=== PATIENT | female | born 1990 | race African-American/Black ===

== ENCOUNTER 2021-01-19 20:49 | Day surgery (SDC) | payer OTHER ==
[2021-01-19 21:10] VITALS: BMI 42.4
[2021-01-19] MEDS ORDERED: hydrALAZINE 20 MG/ML VIAL SLOW IVP PRN (22:07)
== END 2021-01-19 22:53 | disposition home or self-care (01) ==
LOC: CSHLD/OP 20:49
PROVIDERS: ATTEND Obstetrics & Gynecology
DX: O47.1 False labor at or after 37 completed weeks of gestation (principal); Z3A.39 39 weeks gestation of pregnancy; Z79.82 Long term (current) use of aspirin; Z91.040 Latex allergy status
CPT/HCPCS: 99283

== ENCOUNTER 2021-01-22 13:58 | Outpatient (CLI) | payer OTHER ==
[2021-01-23 08:01] LABS: SARS-CoV-2 PCR by NAA Not Detected (NotDetected)
== END 2021-01-22 13:59 | disposition home or self-care (01) ==
LOC: CSHLAB 13:58
PROVIDERS: ATTEND Family Medicine
DX: Z20.822 Contact with and (suspected) exposure to COVID-19 (principal)
CPT/HCPCS: U0003; U0005

== ENCOUNTER 2021-01-22 14:08 | Inpatient (IN) | payer OTHER ==
[2021-01-24] MEDS ORDERED: Lidocaine 2% MPF 10 ML AMP (For Epidural Use) ONE (14:45)
[2021-01-24 19:56] VITALS: BMI 42.0
[2021-01-24] MEDS ORDERED: Ibuprofen 800 MG TAB PO PRN (20:47)
[2021-01-24] MEDS ORDERED: Ondansetron PF 4 MG/2 ML Vial IVP PRN (20:47)
[2021-01-24] MEDS ORDERED: Carboprost 250 MCG/ML AMP IM PRN (20:47)
[2021-01-24] MEDS ORDERED: Misoprostol 200 MCG TAB PR PRN (20:47)
[2021-01-24] MEDS ORDERED: Butorphanol Tartrate 1 MG/ML VIAL SLOW IVP PRN (20:47)
[2021-01-24] MEDS ORDERED: Diphenoxylate HCl/Atropine Tablet PO PRN (20:47)
[2021-01-24] MEDS ORDERED: Promethazine HCl 25 MG/ML VIAL IM PRN (20:47)
[2021-01-24] MEDS ORDERED: HYDROcodone/Acetaminophen 5/325 mg Tablet PO PRN (20:47)
[2021-01-24] MEDS ORDERED: Methylergonovine 0.2 MG/ML VIAL IM PRN (20:47)
[2021-01-24] MEDS ORDERED: Acetaminophen 500 MG TAB PO PRN (20:47)
[2021-01-24] MEDS ORDERED: hydrALAZINE 20 MG/ML VIAL SLOW IVP PRN (20:47)
[2021-01-24] MEDS ORDERED: Lidocaine 1% (PF) 30 ML VIAL SC PRN (20:47)
[2021-01-24] MEDS ORDERED: Misoprostol 100 MCG TAB ONE (20:58)
[2021-01-24] MEDS ORDERED: Lactated Ringer's 1,000 ML IV SCH (21:00)
[2021-01-24] MEDS ORDERED: NS w/ Oxytocin 30 units 500 ML IV SCH ×2 (21:00)
[2021-01-24] MEDS ORDERED: NS w/ Oxytocin 30 units 500 ML IVPB SCH (21:00)
[2021-01-24] MEDS: Misoprostol 100 MCG TAB VAG SCH (21:06)
[2021-01-24 21:50] LABS: Hemoglobin 11.4 g/dL (12.0-15.5); Mean Corpuscular HGB CONC 33.2 g/dL (32.0-36.0); Mean Corpuscular Hemoglobin 31.3 pg (27.0-33.0); Mean Corpuscular Volume 94.2 fl (81.6-98.3); Mean Platelet Volume 12.6 fl (7.4-10.4); Platelet Count 160 10x3/uL (150-450); RBC Distribution Width 14.1 % (11.5-14.5); Red Blood Cell (RBC) Count 3.64 10x6/uL (3.90-5.03); White Blood Cell (WBC) Count 6.3 10x3/uL (3.5-10.5)
[2021-01-24 21:59] LABS: Syphilis Antibody Nonreactive (Nonreactive); Syphilis Antibody Index 0.16 S/CO (<1.00 Non-Reactive)
[2021-01-24 22:00] LABS: Hep B Surf Ag Non-Reactive S/CO (NonReactive)
[2021-01-24 22:09] LABS: HBSAg Index 0.13 S/CO (0-0.99)
[2021-01-25] MEDS: Misoprostol 100 MCG TAB VAG SCH ×2 (00:12→03:54)
[2021-01-25] MEDS ORDERED: Fentanyl 2 mcg/Bup 0.1% Cadd 100 ML ONE (08:55)
[2021-01-25] MEDS ORDERED: ePHEDrine Sulfate 50 MG/10 ML VIAL ONE ×2 (12:03→14:57)
[2021-01-25] MEDS ORDERED: Oxytocin 10 UNITS/ML VIAL ONE ×2 (14:53→17:00)
[2021-01-25] MEDS ORDERED: Ampicillin 2 GM VIAL ONE (14:54)
[2021-01-25] MEDS ORDERED: Morphine PF 10 MG/10 ML VIAL ONE (14:54)
[2021-01-25] MEDS ORDERED: CEFAZOLIN 1 GM VIAL ONE (14:54)
[2021-01-25] MEDS ORDERED: Azithromycin 500 MG VIAL ONE (15:04)
[2021-01-25] MEDS ORDERED: Lidocaine 1% (PF) 30 ML VIAL ONE (15:44)
[2021-01-25] MEDS ORDERED: PROPOFOL 20 ML ONE (15:45)
[2021-01-25] MEDS ORDERED: Dexamethasone 4 mg/ml Vial ONE (16:19)
[2021-01-25] MEDS ORDERED: Ketorolac Tromethamine 30 MG/ML VIAL ONE (16:20)
[2021-01-25] MEDS ORDERED: Fentanyl 100 MCG/2 ML VIAL ONE ×2 (16:25→16:49)
[2021-01-25] MEDS ORDERED: Tranexamic Acid 1,000 MG/10 ML VIAL ONE (16:27)
[2021-01-25] MEDS ORDERED: Carboprost 250 MCG/ML AMP ONE (16:29)
[2021-01-25] MEDS ORDERED: diphenhydrAMINE 25 MG CAP PO PRN ×2 (16:29→20:56)
[2021-01-25] MEDS ORDERED: diphenhydrAMINE 50 MG/ML VIAL IM PRN (16:29)
[2021-01-25] MEDS ORDERED: Ondansetron PF 4 MG/2 ML Vial IVP PRN ×2 (16:29→20:56)
[2021-01-25] MEDS ORDERED: Zolpidem Tartrate 5 MG TAB PO PRN (16:29)
[2021-01-25] MEDS ORDERED: Naloxone HCl 0.4 mg/ml Vial IV PRN (16:29)
[2021-01-25] MEDS ORDERED: Promethazine HCl 25 MG/ML VIAL IM PRN ×2 (16:29→20:56)
[2021-01-25] MEDS ORDERED: diphenhydrAMINE 50 MG/ML VIAL IVP PRN (16:29)
[2021-01-25] MEDS ORDERED: Communication Order-Pharmacy FS PRN (16:30)
[2021-01-25] MEDS ORDERED: Meperidine HCl/PF 25 MG/ML VIAL ONE (16:42)
[2021-01-25] MEDS: hydrALAZINE 20 MG/ML VIAL SLOW IVP PRN ×2 (17:21→18:14)
[2021-01-25] MEDS ORDERED: HYDROmorphone 40 MG/20 ML 10 MG in Sodium Chloride 0.9% 45 ML IV PRN (17:30)
[2021-01-25] MEDS ORDERED: Azithromycin 500 MG in Sodium Chloride 0.9% 250 ML 250 ML IVPB ONE (17:45)
[2021-01-25] MEDS ORDERED: HYDROmorphone 10 mg/100 ml CADD IVPB PRN (18:00)
[2021-01-25] MEDS ORDERED: hydrALAZINE 20 MG/ML VIAL ONE (18:51)
[2021-01-25] MEDS ORDERED: Magnesium Sulfate 20 gm/500 ml 20 GM/500 ML BAG ONE (18:53)
[2021-01-25] MEDS ORDERED: Diphenoxylate HCl/Atropine Tablet PO PRN ×2 (19:43→20:00)
[2021-01-25] MEDS ORDERED: Labetalol 100 MG TAB PO SCH (20:15)
[2021-01-25] MEDS ORDERED: hydrALAZINE 20 MG/ML VIAL SLOW IVP PRN (20:56)
[2021-01-25] MEDS ORDERED: Bisacodyl 10 MG SUPP PR PRN (20:56)
[2021-01-25] MEDS ORDERED: Boostrix 0.5 ML (Tdap) VIAL IM ONE (20:56)
[2021-01-25] MEDS ORDERED: Simethicone Chewable 80 MG TAB PO PRN (20:56)
[2021-01-25] MEDS ORDERED: Lanolin Ointment 7 GM TUBE TOP PRN (20:56)
[2021-01-25] MEDS ORDERED: HYDROcodone/Acetaminophen 5/325 mg Tablet PO PRN (20:56)
[2021-01-25] MEDS ORDERED: NS w/ Oxytocin 30 units 500 ML IV SCH (20:56)
[2021-01-26] MEDS: Ketorolac Tromethamine 30 MG/ML VIAL IVP SCH ×3 (00:05→13:08)
[2021-01-26] MEDS ORDERED: Magnesium Sulfate 20 gm/500 ml 20 GM/500 ML BAG ONE (03:27)
[2021-01-26] MEDS: Docusate Calcium (SURFAK) 240 MG CAP PO SCH ×3 (08:04→20:53)
[2021-01-26] MEDS: Ferrous Sulfate 325 MG TAB PO SCH ×3 (08:05→20:54)
[2021-01-26 09:07] LABS: Hemoglobin 8.9 g/dL (12.0-15.5); Mean Corpuscular HGB CONC 33.1 g/dL (32.0-36.0); Mean Corpuscular Hemoglobin 31.1 pg (27.0-33.0); Mean Corpuscular Volume 94.1 fl (81.6-98.3); Mean Platelet Volume 12.1 fl (7.4-10.4); Platelet Count 152 10x3/uL (150-450); RBC Distribution Width 14.5 % (11.5-14.5); Red Blood Cell (RBC) Count 2.86 10x6/uL (3.90-5.03)
[2021-01-26] MEDS: Misoprostol 100 MCG TAB VAG SCH (10:26)
[2021-01-26] MEDS: Prenatal Vitamin 1 TAB PO SCH (11:01)
[2021-01-26] MEDS: HYDROcodone/Acetaminophen 5/325 mg Tablet PO PRN ×2 (11:02→20:53)
[2021-01-26] MEDS: Ibuprofen 800 MG TAB PO SCH (20:54)
[2021-01-27] MEDS: Ibuprofen 800 MG TAB PO SCH ×3 (06:02→22:34)
[2021-01-27] MEDS: Prenatal Vitamin 1 TAB PO SCH (09:19)
[2021-01-27] MEDS: Docusate Calcium (SURFAK) 240 MG CAP PO SCH ×2 (09:19→22:34)
[2021-01-27] MEDS: Ferrous Sulfate 325 MG TAB PO SCH ×2 (09:19→22:34)
[2021-01-28] MEDS: Ibuprofen 800 MG TAB PO SCH ×2 (05:45→14:16)
[2021-01-28] MEDS: Docusate Calcium (SURFAK) 240 MG CAP PO SCH (09:05)
[2021-01-28] MEDS: Ferrous Sulfate 325 MG TAB PO SCH (09:05)
[2021-01-28] MEDS: Prenatal Vitamin 1 TAB PO SCH (09:06)
[2021-01-28 16:16] VITALS: BP 141/83; TEMP 97.9
== END 2021-01-28 18:00 | disposition home or self-care (01) | DRG 788 ==
LOC: EDSTATUS 14:21 → CSHLD 01-24 19:19 → CSHPP 01-26 10:00
PROVIDERS: ADMIT Family Medicine; ATTEND Family Medicine
PROC: 3E033VJ Introduction of Other Hormone into Peripheral Vein, Percutaneous Approach (ICD-10-PCS; principal; 2021-01-25)
PROC: 10D00Z1 Extraction of Products of Conception, Low, Open Approach (ICD-10-PCS; 2021-01-25)
DX: O62.2 Other uterine inertia (principal); O99.214 Obesity complicating childbirth; E66.9 Obesity, unspecified; O76 Abnormality in fetal heart rate and rhythm complicating labor and delivery; Z3A.40 40 weeks gestation of pregnancy; Z37.0 Single live birth
CPT/HCPCS: 36415; 51702; 85027; 86780; 86850; 86900; 86901; 87340; J0360; J0456; J0595; J1100; J1170; J1885; J2001; J2175; J2274; J2590; J2704; J3010; J3475; J3490

== ENCOUNTER 2021-10-21 19:00 | Emergency (ER) | payer OTHER ==
[2021-10-21] MEDS ORDERED: Dexamethasone 10 MG/ML VIAL ONE (19:57)
== END 2021-10-21 20:25 | disposition home or self-care (01) ==
LOC: CSHERS 19:00
DX: J02.9 Acute pharyngitis, unspecified (principal)
CPT/HCPCS: 99283; J1100

== ENCOUNTER 2022-10-09 08:14 | Emergency (ER) | payer OTHER ==
[2022-10-09 09:04] LABS: #Eosinphils 0.1 10x3/uL (0.0-0.5); #Monocytes 0.3 10x3/uL (0.0-1.1); #Neutrophils 1.9 10x3/uL (1.5-8.4); %Basophils 0.5 % (0.0-2.0); %Eosinophils 2.2 % (0.0-6.0); %Lymphocytes 42.8 % (18.0-47.0); %Monocytes 7.9 % (0.0-10.0); %Neutrophils 46.4 % (40.0-75.0); Hemoglobin 13.3 g/dL (12.0-15.5); Mean Corpuscular HGB CONC 32.7 g/dL (32.0-36.0); Mean Corpuscular Hemoglobin 30.4 pg (27.0-33.0); Mean Corpuscular Volume 92.9 fl (81.6-98.3); Mean Platelet Volume 10.4 fl (7.4-10.4); Platelet Count 240 10x3/uL (150-450); RBC Distribution Width 13.2 % (11.5-14.5); Red Blood Cell (RBC) Count 4.38 10x6/uL (3.90-5.03); White Blood Cell (WBC) Count 4.2 10x3/uL (3.5-10.5)
[2022-10-09 09:23] LABS: ALT (SGPT) 20 U/L (8-55); AST (SGOT) 19 U/L (5-34); Albumin 4.2 g/dL (3.5-5.0); Alkaline Phosphatase 53 U/L (40-110); Anion Gap 14 mmol/L (10-20); BUN (Urea Nitrogen) 14 mg/dL (7.0-18.7); Bilirubin, Total 0.3 mg/dL (0.2-1.2); Calc. Creatinine Clearance 0 mL/min (70-130); Calcium 8.9 mg/dL (7.8-10.44); Carbon Dioxide 23 mmol/L (22-29); Chloride 106 mmol/L (98-107); Estimated GFR 91; Globulin 3.8 g/dL (2.4-3.5); Glucose 128 mg/dL (70-105); Lipase 30 U/L (8-78); Potassium 3.9 mmol/L (3.5-5.1); Sodium 139 mmol/L (136-145)
[2022-10-09] MEDS ORDERED: Mag-Al Plus 1200 MG/1200 MG/120 MG/30 ML UDCUP ONE (11:24)
[2022-10-09] MEDS ORDERED: Lidocaine 1% (PF) 30 ML VIAL ONE ×2 (11:25→11:26)
[2022-10-09] MEDS ORDERED: Lidocaine Viscous Sol 2% 15 ml UD Cup ONE ×2 (11:27)
== END 2022-10-09 11:41 | disposition home or self-care (01) ==
LOC: CSHERS 08:14
DX: R10.13 Epigastric pain (principal); R11.2 Nausea with vomiting, unspecified; R20.2 Paresthesia of skin; G43.909 Migraine, unspecified, not intractable, without status migrainosus
CPT/HCPCS: 36415; 71045; 80053; 83690; 84484; 85025; 93005; J2001

== ENCOUNTER 2023-02-11 19:51 | Emergency (ER) | payer OTHER, SELFPAY ==
[2023-02-11 21:40] LABS: SARS-CoV-2 NAA Rapid Test DETECTED (NotDetected)
== END 2023-02-11 20:59 | disposition home or self-care (01) ==
LOC: CSHERS 19:51
DX: U07.1 COVID-19 (principal); J01.90 Acute sinusitis, unspecified; B96.89 Other specified bacterial agents as the cause of diseases classified elsewhere
CPT/HCPCS: 99283

== ENCOUNTER 2023-05-08 10:33 | Emergency (ER) | payer OTHER ==
[2023-05-08] MEDS ORDERED: Ketorolac Tromethamine 30 MG/ML VIAL ONE (11:28)
[2023-05-08] MEDS ORDERED: Lidocaine 4% Patch TD SCH (12:00)
[2023-05-08] MEDS ORDERED: Transdermal Patch Removal TOP SCH (23:30)
== END 2023-05-08 11:50 | disposition home or self-care (01) ==
LOC: CSHERS 10:33
DX: M54.50 Low back pain, unspecified (principal)
CPT/HCPCS: 96372; 99283; J1885

== ENCOUNTER 2024-03-16 18:21 | Day surgery (SDC) | payer BC, OTHER ==
[2024-03-16 19:02] VITALS: BMI 41.1
[2024-03-16] MEDS ORDERED: hydrALAZINE 20 MG/ML VIAL SLOW IVP PRN (19:48)
== END 2024-03-16 20:00 | disposition home or self-care (01) ==
LOC: CSHLD/OP 18:21
PROVIDERS: ATTEND Family Medicine
DX: O99.891 Other specified diseases and conditions complicating pregnancy (principal); O12.03 Gestational edema, third trimester; O99.353 Diseases of the nervous system complicating pregnancy, third trimester; G43.909 Migraine, unspecified, not intractable, without status migrainosus; O34.211 Maternal care for low transverse scar from previous cesarean delivery; Z3A.37 37 weeks gestation of pregnancy; Z79.82 Long term (current) use of aspirin; Z91.040 Latex allergy status
CPT/HCPCS: 99282

== ENCOUNTER 2024-03-26 09:53 | Inpatient (IN) | payer BC, OTHER ==
[2024-03-26 10:13] VITALS: BMI 41.1
[2024-03-26] MEDS ORDERED: Diphenoxylate HCl/Atropine Tablet PO PRN (11:12)
[2024-03-26] MEDS ORDERED: Misoprostol 200 MCG TAB PR PRN (11:12)
[2024-03-26] MEDS ORDERED: Ondansetron PF 4 MG/2 ML Vial IVP PRN ×4 (11:12→17:58)
[2024-03-26] MEDS ORDERED: Promethazine HCl 25 MG/ML VIAL IM PRN ×3 (11:12→17:58)
[2024-03-26] MEDS ORDERED: Carboprost 250 MCG/ML AMP IM PRN (11:12)
[2024-03-26] MEDS ORDERED: hydrALAZINE 20 MG/ML VIAL SLOW IVP PRN ×2 (11:12→17:58)
[2024-03-26] MEDS ORDERED: Tranexamic Acid 1,000 MG/10 ML VIAL IVP PRN (11:12)
[2024-03-26] MEDS ORDERED: Bicitra 30 ML UDCUP PO PRN (11:12)
[2024-03-26] MEDS ORDERED: Methylergonovine 0.2 MG/ML VIAL IM PRN (11:12)
[2024-03-26] MEDS ORDERED: Famotidine/PF 20 mg/2ml Vial SLOW IVP PRN (11:12)
[2024-03-26] MEDS ORDERED: Oxytocin 30 units/NS 500 ML 500 ML IV SCH (11:15)
[2024-03-26] MEDS ORDERED: CEFAZOLIN 2 GM in Sodium Chloride 0.9% 100 ML IVPB SCH (11:15)
[2024-03-26] MEDS ORDERED: Lactated Ringer's 1,000 ML IV SCH (11:15)
[2024-03-26] MEDS ORDERED: diphenhydrAMINE 50 MG/ML VIAL IVP PRN (13:08)
[2024-03-26] MEDS ORDERED: Meperidine HCl/PF 25 MG (1 mL) VIAL SLOW IVP PRN (13:08)
[2024-03-26] MEDS ORDERED: Naloxone HCl 0.4 mg/ml Vial IV PRN (13:08)
[2024-03-26] MEDS ORDERED: Moisturizing Cream (Eucerin) 113 GM JAR TOP PRN (13:08)
[2024-03-26] MEDS ORDERED: Naloxone HCl 0.4 mg/ml Vial IVP PRN ×2 (13:08)
[2024-03-26] MEDS ORDERED: fentaNYL 50 mcg/mL 1 mL Vial SLOW IVP PRN (13:08)
[2024-03-26] MEDS ORDERED: Communication Order-Pharmacy FS SCH (13:15)
[2024-03-26] MEDS ORDERED: Bisacodyl 10 MG SUPP PR PRN (17:58)
[2024-03-26] MEDS ORDERED: diphenhydrAMINE 25 MG CAP PO PRN (17:58)
[2024-03-26] MEDS ORDERED: Lanolin Ointment 7 GM TUBE TOP PRN (17:58)
[2024-03-26] MEDS ORDERED: Ketorolac Tromethamine 30 MG (1 mL) VIAL IVP SCH (19:00)
[2024-03-26] MEDS ORDERED: Ketorolac Tromethamine 30 MG (1 mL) VIAL IVP PRN (19:05)
[2024-03-26] MEDS: Docusate 100 MG CAP PO SCH (20:37)
[2024-03-26] MEDS: Ketorolac Tromethamine 30 MG (1 mL) VIAL IVP SCH (20:38)
[2024-03-26] MEDS: Ketorolac Tromethamine 30 MG (1 mL) VIAL ONE (20:38)
[2024-03-26] MEDS: Morphine PF 10 MG/10 ML VIAL ONE (21:05)
[2024-03-26] MEDS: Dexmedetomidine 200 MCG/2 ML VIAL ONE (21:05)
[2024-03-26] MEDS: ePHEDrine Sulfate 50 MG/10 ML VIAL ONE (21:05)
[2024-03-26] MEDS: Ferrous Sulfate 325 MG TAB PO SCH (21:06)
[2024-03-26] MEDS: PHENYLEPHRINE-NS 100 MCG/ML 10 ML SYRINGE ONE (21:09)
[2024-03-26] MEDS: Phenylephrine 40 MG/NS 250 ML 250 ML ONE (21:09)
[2024-03-26] MEDS: Oxytocin 10 UNITS/ML VIAL ONE (21:09)
[2024-03-27] MEDS: Boostrix 0.5 ML (Tdap) VIAL (>/=7 yrs of age) IM ONE (01:32)
[2024-03-27 04:26] LABS: Hematocrit 29.2 % (34.9-44.5); Hemoglobin 9.7 g/dL (12.0-15.5); Mean Corpuscular HGB CONC 33.2 g/dL (32.0-36.0); Mean Corpuscular Hemoglobin 31.5 pg (27.0-33.0); Mean Corpuscular Volume 94.8 fL (81.6-98.3); Mean Platelet Volume 12.3 fL (7.4-10.4); Platelet Count 132 10x3/uL (150-450); RBC Distribution Width 14.6 % (11.5-14.5); Red Blood Cell (RBC) Count 3.08 10x6/uL (3.90-5.03); White Blood Cell (WBC) Count 5.4 10x3/uL (3.5-10.5)
[2024-03-27] MEDS: Prenatal Vitamin 1 TAB PO SCH (08:32)
[2024-03-27] MEDS ORDERED: HYDROcodone/Acetaminophen 5/325 mg Tablet PO PRN (09:00)
[2024-03-27] MEDS ORDERED: Meperidine HCl/PF 25 MG (1 mL) VIAL IM PRN (09:00)
[2024-03-27] MEDS: Ibuprofen 800 MG TAB PO SCH (13:24)
[2024-03-27] MEDS: HYDROcodone/Acetaminophen 5/325 mg Tablet PO PRN (13:24)
[2024-03-27] MEDS: Simethicone Chewable 80 MG TAB PO PRN (16:41)
[2024-03-28 03:49] VITALS: TEMP 98.5
[2024-03-28 17:04] VITALS: BP 119/65
== END 2024-03-28 16:30 | disposition home or self-care (01) | DRG 788 ==
LOC: CSHLD 09:53 → CSHPP 15:28
PROVIDERS: ADMIT Family Medicine; ATTEND Family Medicine
PROC: 10D00Z1 Extraction of Products of Conception, Low, Open Approach (ICD-10-PCS; principal; 2024-03-26)
DX: O34.211 Maternal care for low transverse scar from previous cesarean delivery (principal); Z37.0 Single live birth; Z3A.39 39 weeks gestation of pregnancy; E66.9 Obesity, unspecified; O99.214 Obesity complicating childbirth; D50.9 Iron deficiency anemia, unspecified; O99.02 Anemia complicating childbirth; Z91.040 Latex allergy status
CPT/HCPCS: 36415; 51702; 85027; 86780; 86850; 86900; 86901; 87340; 87389; J1885; J2274; J2590